=== PATIENT | male | born 1950 | race Caucasian/White ===

== ENCOUNTER 2016-06-25 18:43 | Observation (INO) | payer OTHER ==
[~2016-06-25] VITALS: Ht 180.3 cm; Wt 104.5 kg
--- NOTE | ~2016-06-25 | DSS ---
[facility] [place] [address] SHORT STAY SUMMARY Name: JANEY HUERTAS Room #: 214-P [facility] Rafy Franco#: [id number] Admission: 06/25/16 Attend Phys: Fanny Evans MD Discharge: 06/27/16 Date of : 46 Report #: [id number] THIS REPORT FOR: //name// CC: Timothy Evans FINAL DIAGNOSES: 1. Syncope. 2. Pacemaker mediated tachycardia. 3. Hypertension. HOSPITAL COURSE: The patient was admitted from surgery center after a hernia repair for tachycardia. He was stable during his stay here. There was a syncopal episode after his surgery as well. Dr. Layne, who knows him well, saw him and interrogated the pacemaker. Please see his notes and recommendations. Adjustments were made, and he has been maintained medical stability. He then find himself out of the hospital. DISPOSITION: He went home on his same medications. He can follow up with Dr. Evans, his surgeon and Dr. Layne, as directed or as needed. DIET AND ACTIVITY: As tolerated. <ELECTRONICALLY SIGNED> By: Christo Cuellar MD 06/28/16 0936 [id number] [id number] Christo Cuellar MD /nt
--- NOTE | ~2016-06-25 | EKG ---
[place] [address] [facility] [place] [address] ELECTROCARDIOGRAM REPORT Name: ALEKSANDARJANEY Room #: 214-P ADM IN M.R.#: [id number] Admission: 06/25/16 Attend Phys: Fanny Evans MD Discharge: Date of : 46 Report #: [id number] THIS REPORT FOR: //name// [facility] ED Test Date: 2016-06-25 Test Time: 19:19:42 Pat Name: JANEY HUERTAS Department: Room: 214 Gender: M [employer] Vehicle Driver: CHRISSY : 1950 Requested By: Lolly Hoover Order Number: [id number] MD: Loy Shipman Measurements Intervals [place] Rate: 80 P: -15 OR: 210 QRS: 71 QRSD: 102 T: -74 QT: 392 QTc: 453 Interpretive Statements Sinus rhythm Borderline repolarization abnormality Baseline wander in lead(s) I,II,aVR Compared to ECG 07/21/2015 07:15:31 No significant changes Electronically Signed On 06-26-2016 7:37:43 CDT by Loy Shipman [email or web address] <ELECTRONICALLY SIGNED> By: Loy Shipman MD, [facility] 06/26/16 0737 1919 18 Loy Shipman MD, [facility] /EPI
--- NOTE | ~2016-06-25 | H ---
[facility] [place] [address] HISTORY AND PHYSICAL Name: JANEY HUERTAS Room #: 214-P ADM IN M.R.#: [id number] Admission: 06/25/16 Attend Phys: Fanny Evans MD Discharge: Date of : 46 Report #: [id number] THIS REPORT FOR: //name// CC: Timothy Evans DATE OF SERVICE: 06/25/2016 CHIEF COMPLAINT: Syncope. HISTORY OF PRESENT ILLNESS: The patient is a 65-year-old gentleman, who was admitted to the emergency room from an outpatient surgery center for evaluation of syncope. He had undergone an elective inguinal hernia repair earlier in the day and was in the recovery area, when he got up to use the bathroom and felt lightheaded and had a syncopal episode. His reported that he was "out" for a few seconds. During that time, it appears the outlying hospital staff at the surgery center noticed his heart rate would vary between 70 and 130, and described as tachycardia. He was admitted for evaluation of possible tachyarrhythmia. PAST MEDICAL HISTORY: Pacemaker implant with prior history of bradycardia and hypertension. PAST SURGICAL HISTORY: Pacemaker, hernia repair. FAMILY HISTORY: Noncontributory. SOCIAL HISTORY: No chronic alcohol or tobacco use. ALLERGIES: PENICILLIN and VANCOMYCIN. MEDICATIONS: Norvasc, triamterene, Flomax, and VESIcare. REVIEW OF SYSTEMS: He denies headache, chest pain, shortness of breath, abdominal pain, nausea, vomiting, diarrhea, constipation, or dysuria. OBJECTIVE: VITAL SIGNS: Temperature 36.9, pulse 75, respirations 20, blood pressure 146/71, and O2 sat 96% on room air. GENERAL: He is awake and alert, in no distress. HEAD AND NECK: Unremarkable. LUNGS: Clear. HEART: Regular. ABDOMEN: Soft and normoactive bowel sounds. EXTREMITIES: No edema. [facility] [address] [place] [address] HISTORY AND PHYSICAL Name: JANEY HUERTAS Room #: 214-P [facility] IN [facility].#: [id number] Admission: 06/25/16 Attend Phys: Fanny Evans MD Discharge: Date of : 46 Report #: [id number] NEUROLOGIC: Cranial nerves intact. He is alert and oriented. Motor strength intact. LABORATORY DATA: White count was 14, creatinine 1.6. EKG revealed sinus rhythm. Blood cultures are pending. ASSESSMENT: 1. Syncope. 2. Tachycardia. 3. History of pacemaker implant. 4. History of recent hernia repair. PLAN: I will repeat his labs. His elevated BUN and creatinine maybe related to n.p.o. status for his surgery and triamterene use. Dr. Layne has been consulted to assess his situation and see if further treatment or workup is indicated. <ELECTRONICALLY SIGNED> By: Christo Cuellar MD 06/26/16 1505 1110 1224 MD eliud Juárez
[~2016-06-25 18:43] MED LIST: COLACE100 MG PO; FLOMAX0.4 MG PO; HYTRIN 5 M5 MG/1 CAP PO; NORVASC10 MG PO; TRIAMTERENE/HCT1 CA1 PO; ZESTORETIC 20-1 EAC3 PO
[2016-06-25 18:45] VITALS: BP 136/65
[2016-06-25 19:09] LABS: HEMATOCRIT 38.4 % (42.0-52.0); HEMOGLOBIN 13.1 gm/dL (14.0-18.0); MCH 28.3 pg (26.0-34.0); MCHC 34.1 g/dL (28.0-37.0); MCV 82.8 fL (80.0-100.0); PLATELET COUNT 240 thou/uL (150-400); RBC 4.63 mil/uL (4.50-6.00); RDW 13.9 % (10.5-14.5); WBC 14.8 thou/uL (4.0-11.0)
[2016-06-25 19:10] LABS: MANUAL DIFF YES
[2016-06-25 19:18] LABS: ANION GAP 12 mmol/L (7-16); BUN 22 mg/dL (7-18); CALCIUM 8.7 mg/dL (8.5-10.1); CHLORIDE 99 mmol/L (98-107); CO2 26 mmol/L (21-32); CREATININE 1.6 mg/dL (0.7-1.3); GLUCOSE 159 mg/dL (74-106); POTASSIUM 3.5 mmol/L (3.5-5.1); SODIUM 137 mmol/L (136-145)
[2016-06-25 19:25] LABS: ALBUMIN 4.1 g/dL (3.4-5.0); ALKALINE PHOSPHATASE 66 U/L (46-116); SGOT 22 U/L (15-37); SGPT 30 U/L (30-65); TOTAL BILIRUBIN 0.4 mg/dL (<0.1-1.0); TOTAL PROTEIN 7.5 g/dL (6.4-8.2); TROPONIN-I < 0.04 ng/mL (<0.04-0.07)
[2016-06-25 19:26] LABS: ABSOLUTE NEUTROPHILS 13.2 thou/uL (1.4-8.2); TOTAL CELL COUNT 100
[2016-06-25 19:32] LABS: URINE BILIRUBIN NEGATIVE (Negative); URINE BLOOD NEGATIVE (Negative); URINE COLOR YELLOW; URINE GLUCOSE-RANDOM* NEGATIVE (Negative); URINE KETONES NEGATIVE (Negative); URINE NITRITE NEGATIVE (Negative); URINE PROTEIN (DIPSTICK) NEGATIVE (Negative); URINE SPECIFIC GRAVITY 1.015 (1.003-1.035); URINE UROBILINOGEN 0.2 E.U./dl (0.2-1.0)
[2016-06-25] MEDS ORDERED: VESICARE 5 MG TA5 MG PO (19:41)
[2016-06-25 20:03] LABS: INR 1.1
[2016-06-25 20:36] VITALS: BP 144/75
[2016-06-25 20:55] VITALS: BP 138/65
[2016-06-25 23:45] VITALS: BP 136/75
[2016-06-26 04:32] VITALS: BP 136/76
[2016-06-26 07:30] VITALS: BP 146/73
[2016-06-26 07:40] VITALS: BP 143/77; BP 146/71
[2016-06-26 11:30] VITALS: BP 113/72; BP 133/72
[2016-06-26 11:31] LABS: ABSOLUTE NEUTROPHILS 9.2 thou/uL (1.4-8.2); BASOPHILS 0.6 % (0.0-2.0); EOSINOPHILS 0.5 % (0.0-3.0); HEMATOCRIT 38.2 % (42.0-52.0); HEMOGLOBIN 12.9 gm/dL (14.0-18.0); LYMPHOCYTES 14.8 % (24.0-44.0); MCH 28.5 pg (26.0-34.0); MCHC 33.7 g/dL (28.0-37.0); MCV 84.7 fL (80.0-100.0); MONOCYTES 7.4 % (1.0-8.0); PLATELET COUNT 272 thou/uL (150-400); POLYS 76.7 % (36.0-66.0); RBC 4.51 mil/uL (4.50-6.00)
[2016-06-26 11:33] LABS: MANUAL DIFF NO
[2016-06-26 11:38] LABS: CALCIUM 8.4 mg/dL (8.5-10.1); CREATININE 1.3 mg/dL (0.7-1.3); POTASSIUM 3.5 mmol/L (3.5-5.1)
[2016-06-26 15:55] VITALS: BP 149/71
[2016-06-26 19:28] VITALS: BP 153/81
[2016-06-27 04:12] VITALS: BP 164/93
[2016-06-27 07:30] VITALS: BP 148/75
[2016-06-27 11:09] VITALS: BP 172/70
== END 2016-06-27 13:24 | disposition home or self-care (01) ==
LOC: ER 18:43 → 2N 19:53 → EROBS 19:53 → 2N 19:53
PROVIDERS: Internal Medicine Geriatric Medicine; Physician Assistant
DX: R00.0 Tachycardia, unspecified (principal); R55 Syncope and collapse; R00.1 Bradycardia, unspecified; N17.9 Acute kidney failure, unspecified; I10 Essential (primary) hypertension; Z88.1 Allergy status to other antibiotic agents; Z88.0 Allergy status to penicillin; Z95.0 Presence of cardiac pacemaker; Z79.899 Other long term (current) drug therapy
CPT/HCPCS: 10081

== ENCOUNTER → 2017-07-04 | Outpatient (CLI) | payer OTHER ==
[~2017-07-04] MED LIST changes: +VESICARE 5 MG TA5 MG PO
== END ==
LOC: ULTRA 06:15
DX: N28.1 Cyst of kidney, acquired (principal)

== ENCOUNTER → 2019-12-23 | Outpatient (CLI) | payer OTHER | LOC: SJCVCIMAG 08:14 | PROVIDERS: ATTEND Internal Medicine Cardiovascular Disease | DX: I07.1 Rheumatic tricuspid insufficiency (principal); I27.20 Pulmonary hypertension, unspecified; R94.31 Abnormal electrocardiogram [ECG] [EKG]; I45.10 Unspecified right bundle-branch block; I10 Essential (primary) hypertension; Z95.0 Presence of cardiac pacemaker; Z79.82 Long term (current) use of aspirin; Z79.899 Other long term (current) drug therapy ==

== ENCOUNTER → 2020-12-22 | Outpatient (CLI) | payer OTHER | LOC: SJCVC 13:01 | PROVIDERS: ATTEND Internal Medicine Cardiovascular Disease | DX: R94.31 Abnormal electrocardiogram [ECG] [EKG] (principal); I44.2 Atrioventricular block, complete; I10 Essential (primary) hypertension; Z88.0 Allergy status to penicillin; Z88.1 Allergy status to other antibiotic agents; Z95.0 Presence of cardiac pacemaker; Z79.82 Long term (current) use of aspirin; Z79.899 Other long term (current) drug therapy ==